=== PATIENT | female | born 1975 | race Caucasian/White ===

== ENCOUNTER 2021-02-24 05:43 | Day surgery (SDC) | payer MEDICARE, MEDICAID ==
[2021-02-17 12:08] LABS: BASOPHILS # (AUTO) 0.1 X10'3 (0-0.2); BASOPHILS % (AUTO) 1.2 % (0-1); EOSINOPHILS # (AUTO) 0.2 X10'3 (0-0.9); EOSINOPHILS % (AUTO) 3.7 % (0-6); LYMPHOCYTES # (AUTO) 1.8 X10'3 (1.1-4.8); LYMPHOCYTES % (AUTO) 34.4 % (21-51); MEAN CORPUSCULAR HEMOGLOBIN 30.7 PG (27.0-31.0); MEAN CORPUSCULAR HGB CONC 33.6 g/dL (33.0-36.5); MEAN CORPUSCULAR VOLUME 91.5 FL (78-98); MEAN PLATELET VOLUME 7.3 FL (7.4-10.4); MONOCYTES # (AUTO) 0.6 X10'3 (0-0.9); MONOCYTES % (AUTO) 11.9 % (2-12); NEUTROPHILS # (AUTO) 2.5 X10'3 (1.8-7.7); NEUTROPHILS % (AUTO) 48.8 % (42-75); PRE OP HEMATOCRIT 40.8 % (35.0-45.0); PRE OP HEMOGLOBIN 13.7 g/dL (12.0-16.0); PRE OP PLATELET COUNT 288 X10'3 (140-440); RED BLOOD COUNT 4.46 X10'6 (4.20-5.60); RED CELL DISTRIBUTION WIDTH 14.6 % (11.5-14.5)
[2021-02-17 12:24] LABS: ALBUMIN 3.5 G/DL (3.4-5.0); ALBUMIN/GLOBULIN RATIO 0.9 (1.1-1.5); ALKALINE PHOSPHATASE 95 IU/L (46-116); BLOOD UREA NITROGEN 17 MG/DL (7-18); BUN/CREATININE RATIO 28.3 (6.6-38.0); CALCIUM 8.4 MG/DL (8.5-10.1); CHLORIDE 103 MMOL/L (99-107); PRE OP ALT 26 U/L (30-65); PRE OP ANION GAP 6 (8-16); PRE OP AST 26 U/L (10-37); PRE OP BILIRUB, TOTAL 0.2 MG/DL (0.0-1.0); PRE OP GLUCOSE 84 MG/DL (70-104); PRE OP POTASSIUM 4.3 MMOL/L (3.4-5.1); PRE OP SODIUM 136 MMOL/L (135-145); TOTAL CARBON DIOXIDE 26.7 MMOL/L (24-32); TOTAL PROTEIN 7.3 G/DL (6.4-8.2); eGFR > 90 ML/MIN
[2021-02-17 13:33] LABS: CLARITY,URINE CLEAR (Clear); COLOR,URINE YELLOW (Yellow); GLUCOSE, URINE NEGATIVE (Neg); KETONES,URINE NEGATIVE (Neg); LEUKOCYTE ESTERASE ,URINE NEGATIVE (Neg); NITRITES, URINE NEGATIVE (Neg); OCCULT BLOOD,URINE NEGATIVE (Neg); PH,URINE 5.5 (4.8-8.0); PROTEIN,URINE NEGATIVE (Neg); UROBILINOGEN,URINE 0.2 E.U/dL (0.2-1.0)
[2021-02-17 13:35] LABS: UA COLLECTION TYPE NON-SPECIFIED
[2021-02-24] VITALS (18 sets, daily range): BP systolic 98–145; BP diastolic 49–103
[~2021-02-24] VITALS: Ht 170.2 cm; Wt 108.0 kg
[~2021-02-24 05:43] MED LIST: ARIP2TAB37 PO; ASCO-336 PO; CALC-336 PO; CHOL20004 PO; CYAN50TA2 PO; DULO20CA50 PO; FERR-119 PO; MELO-102 PO; MULT-1141 PO; SPIR50TA5 PO; cefazolin/dext.iso 2gm/100ml IV ONE; famotidine 20mg tablet PO ONE; ringers solution, lacted 1,000 ML IV SCH
[2021-02-24] MEDS ORDERED: bacitracin 15gm ointment TP ONE (06:51)
[2021-02-24] MEDS ORDERED: fentaNYL/PF 50MCG/1 ML 2ML syringe ONE ×2 (07:16→08:04)
[2021-02-24] MEDS ORDERED: midazolam 1 mg/ML 2ml injection ONE ×2 (07:16→07:17)
[2021-02-24] MEDS ORDERED: sevoflurane 250ml liquid IH ONE (07:20)
[2021-02-24] MEDS ORDERED: labetalol 20mg/4ml (5mg/ml) syringe IV ONE (07:20)
[2021-02-24] MEDS ORDERED: meperidine/PF 25mg/ml syringe IV PRN ×3 (09:10)
[2021-02-24] MEDS ORDERED: morphine 2 MG/ML inj. syringe IV PRN (09:10)
[2021-02-24] MEDS ORDERED: ROPIVAcaine 0.2%/PF PUMP/bolus 545 ML POPLITEAL SCH (09:10)
[2021-02-24] MEDS ORDERED: ondansetron/PF 4mg/2ml inj IV PRN (09:10)
[2021-02-24] MEDS ORDERED: morphine 4 MG/ML inj SYRINge IV PRN (09:10)
[2021-02-24] MEDS ORDERED: ringers solution, lacted 1,000 ML IV SCH (09:10)
[2021-02-24] MEDS ORDERED: proCHLORperazine 10 MG/2 ml inj IV PRN (09:10)
[2021-02-24] MEDS ORDERED: ROPIVAcaine 0.2% (10 MG/5 ML) BOLUS INJECTION POPLITEAL PRN (09:10)
[2021-02-24] MEDS ORDERED: ondansetron/PF 4mg/2ml inj ONE (09:28)
[2021-02-24] MEDS ORDERED: rocuronium 10mg/ml inj IV ONE (09:28)
[2021-02-24] MEDS ORDERED: propofol inj 20 ML IV ONE (09:28)
[2021-02-24] MEDS ORDERED: dexamethasone sod phosphate 4mg/ml inj. ONE (09:28)
[2021-02-24] MEDS ORDERED: acetaminophen 1,000mg/100ml IV 100 ML IV ONE (09:28)
[2021-02-24] MEDS ORDERED: ROPIVAcaine 0.5% (5mg/ml) 30ml vial ONE (09:28)
[2021-02-24] MEDS ORDERED: neostigmine methylsulfate 1 MG/ML 10ml vial ONE (09:28)
[2021-02-24] MEDS ORDERED: glycopyrrolate 0.2mg/ml inj ONE (09:28)
[2021-02-24] MEDS ORDERED: LIDOcaine 1%/PF 5ML 10 MG/ML VIAL ONE (09:28)
[2021-02-24] MEDS ORDERED: morphine 10mg/ml inj. ONE (09:32)
[2021-02-24] MEDS ORDERED: meperidine/PF 25mg/ml syringe ONE (12:21)
--- NOTE | 2021-02-24 13:35 | NUR ---
RECEIVED PATIENT ON SHAVON FROM PACU TO PAS UNIT FROM [place] [place], AND REPORT FROM HIM. PATIENT IS SLEEPY, V.S. IS STABLE, WHEN SHE FALLS IN ASLEEP, O2 SAT DROPS TO HIGH 80'S TO 90%. AWAKE TO VOICE, RIGHT LEG WITH KIRSTIN WRAP AND DRESSING, PINS ON SECOND-FIFTH TOES IN PLACE, NO BLEEDING OR DRAINAGE NOTED, TOES ARE WARM TO TOUCH, CAP REFILL OF 2-3 SEC ON RIGHT BIG TOE, RIGHT LEG IS RAISED WITH A FOAM AND PILLOW AND LEG PART OF SHAVON IS PROPPED UP, PIV ON RIGHT HAND 20G LR RUNNING AT 100ML/HR, WILL MONITOR. Addendum: 02/24/21 at 1601 by Rebecca Kendall RN Amended: Links added.
--- NOTE | 2021-02-24 13:35 | NUR ---
TRANSFER: PATIENT HAS MET ALL CRITERIA FOR TRANSFER TO THE SURGICAL/KIRSTIN/PCU/ORTHO/ICU FLOOR. VSS. DRESSINGS INTACT. BED LOW, CALL LIGHT PRESENT AND 2 RAILS UP. RN PRESENT TO ACCEPT CARE OF PATIENT AND REPORT HAS BEEN CALLED. ALL QUESTIONS ANSWERED TO ACCEPTING RN. TRANSFERED TO PASS UNIT TO COMPLETE RECOVERY. Addendum: 02/24/21 at 1345 by Roberto Hinojosa - SYDNEE RN Amended: Links added.
--- NOTE | 2021-02-24 15:35 | NUR ---
PATIENT Deniz. STABLE, AWAKE, ALERT AND ORIENTED, KIRSTIN WRAP AND DRESSING CDI ON RIGHT LEG WITH PINS ON SECOND-FIFTH TOES, NO BLEEDING OR DRAINAGE NOTED, PIV 20G REMOVED FROM RIGHT HAND, CATHETER INTACT, PATIENT DENIES NAUSEA, PAIN IS AROUND 3-4/10 ON RIGHT THIGH AT DISCHARGE, TRANSFERRED TO PRIVATE VEHICLE ON WHEELCHAIR WITHOUT INCIDENTS, TWO BAGS OF BELONGINGS AND FOAM WERE SENT HOME, PT'S MOTHER IS TAKING PT HOME. Addendum: 02/24/21 at 1640 by Rebecca Kendall RN Amended: Links added.
== END 2021-02-24 15:35 | disposition home or self-care (01) ==
LOC: PAS 05:43
PROVIDERS: ATTEND Podiatrist Foot & Ankle Surgery
DX: M20.41 Other hammer toe(s) (acquired), right foot (principal); M19.071 Primary osteoarthritis, right ankle and foot; M25.374 Other instability, right foot; M21.371 Foot drop, right foot; M24.574 Contracture, right foot; M21.6X1 Other acquired deformities of right foot; G89.18 Other acute postprocedural pain; M79.671 Pain in right foot
CPT/HCPCS: 27687; 27691; 28270; 28285; 28750; 36415; 64447; 64450; 73620; 76000; 80053; 81003; 82948; 85025; 85610; 85730; 93005; A6223; C1713; J0131; J1100; J2175; J2250; J2270; J2405; J2704; J2710; J2795; J3010; J7120; A4215; A4618; A6253; A6449; A7000; J3490

== ENCOUNTER 2022-04-23 04:36 | Emergency (ER) | payer MEDICARE, MEDICAID ==
[~2022-04-23] VITALS: Ht 170.2 cm; Wt 113.6 kg
[~2022-04-23 04:36] MED LIST changes: -cefazolin/dext.iso 2gm/100ml IV ONE; -famotidine 20mg tablet PO ONE; -ringers solution, lacted 1,000 ML IV SCH
[2022-04-23] MEDS ORDERED: normal saline 1000ML IV soln IVB ONE ×3 (05:20→07:10)
[2022-04-23] MEDS ORDERED: ondansetron/PF 4mg/2ml inj IV ONE (05:20)
[2022-04-23] MEDS ORDERED: pantoprazole 40 MG vial IV ONE (05:20)
[2022-04-23] MEDS ORDERED: pantoprazole 40MG/NS 100ML BAG 100 ML IV ONE (05:25)
[2022-04-23 06:37] LABS: ALANINE AMINOTRANSFERASE 98 U/L (12-78); ALBUMIN 2.4 G/DL (3.4-5.0); ALKALINE PHOSPHATASE 167 IU/L (46-116); ANION GAP 12 (8-16); ASPARTATE AMINO TRANSFERASE 330 U/L (10-37); BILIRUBIN,TOTAL 4.6 MG/DL (0.1-1.0); BLOOD UREA NITROGEN 3 MG/DL (7-18); BUN/CREATININE RATIO 4.4 (6.6-38.0); CALCIUM 8.4 MG/DL (8.5-10.1); CHLORIDE 103 MMOL/L (99-107); CREATININE 0.68 MG/DL (0.40-0.90); GLUCOSE 116 MG/DL (70-104); POTASSIUM 3.6 MMOL/L (3.5-5.1); SODIUM 142 MMOL/L (135-145); TOTAL CARBON DIOXIDE 27.5 MMOL/L (24-32); eGFR > 90 ML/MIN
[2022-04-23 06:39] LABS: LIPASE 50 U/L (73-393)
[2022-04-23 06:40] LABS: ALBUMIN/GLOBULIN RATIO 0.5 (1.1-1.5); BASOPHILS # (AUTO) 0.1 X10'3 (0-0.2); BASOPHILS % (AUTO) 1.7 % (0-1); EOSINOPHILS # (AUTO) 0.1 X10'3 (0-0.9); EOSINOPHILS % (AUTO) 1.2 % (0-6); HEMATOCRIT 36.8 % (35.0-45.0); HEMOGLOBIN 12.5 g/dl (12.0-16.0); LYMPHOCYTES # (AUTO) 1.1 X10'3 (1.1-4.8); LYMPHOCYTES % (AUTO) 27.6 % (21-51); MEAN CORPUSCULAR HEMOGLOBIN 33.7 PG (27.0-31.0); MEAN CORPUSCULAR VOLUME 99.2 FL (78-98); MONOCYTES # (AUTO) 0.4 X10'3 (0-0.9); MONOCYTES % (AUTO) 9.1 % (2-12); NEUTROPHILS # (AUTO) 2.5 X10'3 (1.8-7.7); NEUTROPHILS % (AUTO) 60.4 % (42-75); PLATELET COUNT 182 X10'3 (140-440); RED BLOOD COUNT 3.71 X10'6 (4.20-5.60); RED CELL DISTRIBUTION WIDTH 17.6 % (11.5-14.5); TOTAL PROTEIN 7.2 G/DL (6.4-8.2); WHITE BLOOD COUNT 4.1 X10'3 (4.5-11.0)
[2022-04-23 06:41] LABS: ETHANOL 0.035 GM/DL (0.0-0.010)
[2022-04-23] MEDS ORDERED: chlordiazePOXIDE 25mg capsule PO ONE (07:10)
[2022-04-23 08:26] LABS: CREATINE KINASE 91 U/L (26-192); MAGNESIUM 1.8 MG/DL (1.5-2.4)
[2022-04-23] MEDS ORDERED: CHLO25CA10 PO (08:31)
--- NOTE | 2022-04-23 09:24 | NUR ---
Patient unhappy with being discharged, stated we didn't care about her problems. Nurse educated patient on the lab work and studies completed regarding her cheif complaint. Education prvided on alcohol abuse per discharge instructions. Patient proceeded to urinate in bed without asking for assistance during this time.
[2022-04-23 09:40] VITALS: BP 119/76
== END 2022-04-23 09:42 | disposition home or self-care (01) ==
LOC: ER 04:36
DX: F10.20 Alcohol dependence, uncomplicated (principal); K70.10 Alcoholic hepatitis without ascites; K76.0 Fatty (change of) liver, not elsewhere classified; R10.13 Epigastric pain; F32.9 Major depressive disorder, single episode, unspecified; G62.9 Polyneuropathy, unspecified; Z72.89 Other problems related to lifestyle; Z79.899 Other long term (current) drug therapy; Y90.0 Blood alcohol level of less than 20 mg/100 ml
CPT/HCPCS: 36415; 71045; 76700; 80053; 80320; 82550; 83690; 83735; 85025; 85610; 93005; 96365; 96375; 99285; C9113; J2405; J7030

== ENCOUNTER 2022-05-12 03:42 | Emergency (ER) | payer MEDICARE, MEDICAID ==
[~2022-05-12] VITALS: Ht 172.7 cm; Wt 99.0 kg
[~2022-05-12 03:42] MED LIST changes: +CHLO25CA10 PO
[2022-05-12 06:06] VITALS: BP 144/83
== END 2022-05-12 06:08 | disposition home or self-care (01) ==
LOC: ER 03:43
DX: S00.81XA Abrasion of other part of head, initial encounter (principal); W18.39XA Other fall on same level, initial encounter; Y93.89 Activity, other specified; Y92.89 Other specified places as the place of occurrence of the external cause; Y99.8 Other external cause status; F32.A Depression, unspecified; Z79.899 Other long term (current) drug therapy
CPT/HCPCS: 70450; 99284